=== PATIENT | male | born 1940 | race Two or more races ===

== ENCOUNTER 2019-01-31 06:55 | Day surgery (SDC) | payer OTHER ==
[~2019-01-31 06:55] MED LIST: AMBIEN5 MG PO; COZAAR50 MG PO; PAXIL CR37.5 MG PO; XANAX1 MG PO
== END 2019-01-31 15:55 | disposition home or self-care (01) ==
LOC: CIR.AMB 06:55
DX: M75.121 Complete rotator cuff tear or rupture of right shoulder, not specified as traumatic (principal)